=== PATIENT | female | born 1975 | race American Indian/Alaskan Native ===

== ENCOUNTER 2016-10-06 16:48 | Inpatient (IN) | payer OTHER ==
--- NOTE | 2016-10-06 17:04 | ED PDOC ---
Arrival/HPI - General Chief Complaint: Abdominal Pain Time Seen by Provider: 10/06/16 17:04 Historian: Patient - History of Present Illness Narrative History of Present Illness (Text): 10/06/16 17:04 This 41 yo female presents to this ED c/o epigastric abdominal pain and nausea x 8 hours. Patient stated pain worsen after eating lunch. Patient denies similar symptoms in the past. Denies cp, sob, diarrhea, rectal bleeding, ETOH abuse, illegal drug use, or abnormal gait. Time/Duration: Other (8 hours) Context: Home Past Medical History - Provider Review Nursing Documentation Reviewed: Yes - Infectious Disease Hx of Infectious Diseases: None - Cardiac Hx Hypertension: Yes - Psychiatric Hx Substance Use: No Family/Social History - Physician Review Nursing Documentation Reviewed: Yes Family/Social History: No Known Family HX Smoking Status: Never Smoked Hx Alcohol Use: No Hx Substance Use: No Allergies/Home Meds Allergies/Adverse Reactions: Allergies No Known Allergies Allergy (Verified 10/06/16 17:00) Home Medications: Home Meds Medication Instructions Recorded Confirmed No Known Home Med 10/06/16 10/06/16 Review of Systems - Review of Systems Constitutional: Normal. absent: Fatigue, Weight Change, Fevers Eyes: Normal ENT: Normal Respiratory: Normal Cardiovascular: Normal Gastrointestinal: Abdominal Pain (epigastric), Other (No rectal bleeding). absent: Constipation, Diarrhea, Nausea, Vomiting, Hematochezia, Hematemesis Genitourinary Female: Normal Musculoskeletal: Normal Skin: Normal Neurological: Normal Endocrine: Normal Hemo/Lymphatic: Normal Psychiatric: Normal Physical Exam Vital Signs Temp Pulse Resp BP Pulse Ox 10/06/16 21:29 85 16 99 10/06/16 20:44 98.8 F 59 L 15 144/95 H 100 10/06/16 18:00 72 16 180/90 H 99 10/06/16 17:08 98.6 F 86 24 178/101 H 100 Temperature: Afebrile Blood Pressure: Hypertensive Pulse: Regular Respiratory Rate: Normal Appearance: Positive for: Well-Appearing, Non-Toxic, Uncomfortable Pain Distress: None Mental Status: Positive for: Alert and Oriented X 3 - Systems Exam Head: Present: Atraumatic, Normocephalic Pupils: Present: PERRL Extroacular Muscles: Present: EOMI Conjunctiva: Present: Normal Mouth: Present: Moist Mucous Membranes Neck: Present: Normal Range of Motion Respiratory/Chest: Present: Clear to Auscultation, Good Air Exchange. No: Respiratory Distress, Accessory Muscle Use Cardiovascular: Present: Regular Rate and Rhythm, Normal S1, S2. No: Murmurs Abdomen: Present: Tenderness (Mild epigastric tenderness), Normal Bowel Sounds. No: Distention, Peritoneal Signs, Rebound, Guarding, McBurney's Point Tender, Rovsing's Sign Present, Hernias Back: Present: Normal Inspection. No: CVA Tenderness Upper Extremity: Present: Normal Inspection, Normal ROM, NORMAL PULSES, Neurovascularly Intact, Capillary Refill < 2s. No: Cyanosis, Edema Lower Extremity: Present: Normal Inspection, NORMAL PULSES, Normal ROM, Neurovascularly Intact, Capillary Refill < 2 s. No: Edema, CALF TENDERNESS Neurological: Present: GCS=15, CN II-XII Intact, Speech Normal, Motor Func Grossly Intact, Normal Sensory Function, Normal Cerebellar Funct, Gait Normal Skin: Present: Warm, Dry, Normal Color. No: Rashes Psychiatric: Present: Alert, Oriented x 3, Normal Insight, Normal Concentration Medical Decision Making ED Course and Treatment: 10/06/16 20:00 operations vice president has examined patient. He will contact Dr. Oneill immediately 10/06/16 21:36 Dr. Oneill is at bedside, who agrees with plan for admission under her service Re-evaluation Time: 20:10 Reassessment Condition: Re-examined, Improving,but remains with symptoms - Lab Interpretations Lab Results: 10/06/16 17:20 10/06/16 18:50 Lab Results 10/06/16 19:30: Lactate Dehydrogenase 484 10/06/16 18:50: Sodium 135, Potassium 3.4 L, Chloride 103, Carbon Dioxide 19 L, Anion Gap 16, BUN 6 L, Creatinine 0.9, Est GFR ( Amer) > 60, Est GFR (Non -Af Amer) > 60, Random Glucose 102, Calcium 9.5, Total Bilirubin 0.8, AST 27, ALT 20, Alkaline Phosphatase 87, Total Protein 8.4 H, Albumin 4.7, Globulin 3.7 , Albumin/Globulin Ratio 1.3, Amylase 120, Lipase 79 10/06/16 17:25: Urine Color Yellow, Urine Appearance Sl cloudy, Urine pH 8.5, Ur Specific [place] 1.025, Urine Protein Trace H, Urine Glucose (UA) Negative, Urine Ketones 40 H, Urine Blood Negative, Urine Nitrate Negative, Urine Bilirubin Negative, Urine Urobilinogen 0.2, Ur Leukocyte Esterase Negative, Urine RBC 0 - 2, Urine WBC 0 - 2, Ur Epithelial Cells 4 - 5, Urine Bacteria Trace, Urine HCG, Qual Negative 10/06/16 17:20: WBC 4.1 L, RBC 4.48, Hgb 12.9, Hct 38.2, MCV 85.3, MCH 28.8, MCHC 33.8, RDW 13.5, Plt Count 249, MPV 10.0, Gran % 71.4 H, Lymph % (Auto) 21.3 L, [place] % (Auto) 6.8 H, Eos % (Auto) 0.0 L, Baso % (Auto) 0.5, Gran # 2.96 , Lymph # 0.9 L, [place] # 0.3, Eos # 0.0, Baso # 0.02 I have reviewed the lab results: Yes Interpretation: No clinic. lab abnormalty - RAD Interpretation Narrative RAD Interpretations (Text): 10/06/16 20:08 [facility] FINDINGS: There is a short loop of abnormally dilated distal ileum in the right lower quadrant with proximal and distal adjacent transition points seen best on axial images 112-118. The appearance could reflect an adhesion, internal hernia, or volvulus. The obstructed loop is markedly edematous raising concern for early ischemia. No pneumatosis or free air. Small amount diffuse peritoneal ascites. Normal appendix and colon. The lung bases, unenhanced liver, biliary tree, gallbladder, pancreas, spleen, adrenal glands, kidneys, uterus, ovaries, and urinary bladder are normal. Chronic degenerative changes at the lumbosacral junction. IMPRESSION: Small closed loop distal ileal obstruction in the right lower quadrant. Findings could reflect an adhesion, internal hernia, or volvulus. The obstructed loop is abnormally edematous, concerning for early ischemia. No pneumatosis or free intraperitoneal air. Emergent surgical evaluation recommended. Thank you for allowing us to participate in the care of your patient. Dictated and Authenticated by: Aidee Rodas MD 10/06/2016 7:22 PM Eastern Time ([place] & [place]) 10/06/16 20:52 Accession No. : [id number] Patient Name / ID : VU CLAIRE / [id number] Exam Date : 10/06/2016 18:13:53 ( Approved ) Study Comment : Sex / Age : F / 41Y Creator : Ian Estrella MD Dictator : Ian Estrella MD Gaming Host : Counter Top Assembler : Ian Estrella MD Approver2 : Report Date : 10/06/2016 18:55:50 My Comment : HISTORY: epigastric pain COMPARISON: None. TECHNIQUE: Sonographic evaluation of the abdomen. FINDINGS: LIVER: Measures 14.4 cm. Hepatopedal blood flow. Fatty infiltration manifest ultrasonographically as increased echogenicity of the liver parenchyma. No mass. No intrahepatic bile duct dilatation. GALLBLADDER: Cholelithiasis. Negative study for gallbladder wall thickening, pericholecystic fluid, sonographic Breen's sign. COMMON BILE DUCT: Measures 3.7 mm. No stones. No dilatation. PANCREAS: Unremarkable as visualized. No mass. No ductal dilatation. RIGHT KIDNEY: Measures 4 x 9.1cm. Normal echogenicity. No calculus, mass, or hydronephrosis. LEFT KIDNEY: Measures 4.6 x 10.6cm. Normal echogenicity. No calculus, mass, or hydronephrosis. SPLEEN: Normal in size and contour. No mass. AORTA: No aneurysmal dilatation. IVC: Unremarkable. OTHER FINDINGS: Trace right upper quadrant/subhepatic ascites and trace fluid in the right flank IMPRESSION: Cholelithiasis. Negative study for gallbladder wall thickening, pericholecystic fluid, sonographic Breen's sign. Additional benign and/or incidental findings described above. Radiology Orders: 10/06/16 17:12 CHEST PORTABLE [RAD] Stat ABDOMEN COMPLETE [US] Stat 10/06/16 17:17 ABD & PELVIS W/O PO OR IV CONT [CT] Stat - Medication Orders Current Medication Orders: Famotidine (Pepcid) 20 mg IVP DAILY FABIAN Heparin Sodium (Porcine) (Heparin) 5,000 units SC Q12 FABIAN PRN Reason: Protocol Hydromorphone HCl (Dilaudid) 1 mg IVP Q3 PRN PRN Reason: Pain, severe (8-10) Hydromorphone HCl (Dilaudid) 0.5 mg IVP Q15M PRN PRN Reason: Pain, moderate (4-7) Stop: 10/07/16 17:51 Last Admin: 10/07/16 16:31 Dose: 0.5 mg Sodium Chloride (Sodium Chloride 0.9%) 1,000 mls @ 150 mls/hr IV .Q6H40M [facility] Last Admin: 10/07/16 05:50 Dose: 150 mls/hr Piperacillin Sod/Tazobactam Sod (Zosyn 3.375 In Ns 100ml) 100 mls @ 200 mls/hr IVPB Q6H [facility] PRN Reason: Protocol Stop: 10/08/16 03:59 Lactated Ringer's (Lactated Ringer's) 1,000 mls @ 75 mls/hr IV .[id number] [facility] Stop: 10/07/16 17:52 Ondansetron HCl (Zofran Inj) 4 mg IVP Q4H PRN PRN Reason: Nausea/Vomiting Last Admin: 10/07/16 05:56 Dose: 4 mg Oxycodone/Acetaminophen (Percocet 5/325 Mg Tab) 1 tab PO Q4H PRN PRN Reason: Pain, moderate (4-7) Stop: 10/10/16 15:54 Discontinued Medications Acetaminophen (Tylenol 650 Mg Supp) Confirm Administered Dose 650 mg .ROUTE .STK -MED ONE Stop: 10/07/16 13:39 Acetaminophen (Tylenol 650 Mg Supp) 650 mg RC STAT ONE Stop: 10/07/16 13:39 Desflurane (Suprane) Confirm Administered Dose 240 ml .ROUTE .STK-MED ONE Stop: 10/07/16 14:22 Dexamethasone (Decadron Inj) Confirm Administered Dose 10 mg .ROUTE .STK-MED ONE Stop: 10/07/16 15:32 Famotidine (Pepcid) 20 mg IVP STAT STA Stop: 10/06/16 17:13 Last Admin: 10/06/16 17:40 Dose: 20 mg Fentanyl (Fentanyl) Confirm Administered Dose 100 mcg .ROUTE .STK-MED ONE Stop: 10/07/16 14:11 Glycopyrrolate (Robinul) Confirm Administered Dose 0.2 mg .ROUTE .STK-MED ONE Stop: 10/07/16 15:29 Glycopyrrolate (Robinul) Confirm Administered Dose 0.2 mg .ROUTE .STK-MED ONE Stop: 10/07/16 15:30 Home Med (*Refrigerator Open) Confirm Administered Dose 1 unit XX .STK-MED ONE Stop: 10/07/16 08:18 Hydromorphone HCl (Dilaudid) 1 mg IVP STAT STA Stop: 10/06/16 19:37 Last Admin: 10/06/16 20:08 Dose: 1 mg Hydromorphone HCl (Dilaudid) 1 mg IVP STAT STA Stop: 10/06/16 21:25 Last Admin: 10/06/16 21:28 Dose: 1 mg Hydromorphone HCl (Dilaudid) Confirm Administered Dose 1 mg .ROUTE .STK-MED ONE Stop: 10/06/16 21:26 Last Admin: 10/06/16 21:27 Dose: Hydromorphone HCl (Dilaudid) 1 mg IVP Q4H PRN PRN Reason: Pain, severe (8-10) Last Admin: 10/07/16 11:05 Dose: 1 mg Hydromorphone HCl (Dilaudid) Confirm Administered Dose 0.5 mg .ROUTE .STK-MED ONE Stop: 10/07/16 16:14 Hydromorphone HCl (Dilaudid) Confirm Administered Dose 0.5 mg .ROUTE .STK-MED ONE Stop: 10/07/16 16:31 Sodium Chloride (Sodium Chloride 0.9%) 1,000 mls @ 1,000 mls/hr IV .Q1H STA Stop: 10/06/16 18:11 Last Admin: 10/06/16 17:40 Dose: 1,000 mls/hr Sodium Chloride (Sodium Chloride 0.9%) 1,000 mls @ 100 mls/hr IV .Q10H [facility] Piperacillin Sod/Tazobactam Sod (Zosyn 3.375 In Ns 100ml) 100 mls @ 200 mls/hr IVPB STAT STA PRN Reason: Protocol Stop: 10/07/16 15:02 Metoclopramide HCl (Reglan) Confirm Administered Dose 10 mg .ROUTE .STK-MED ONE Stop: 10/07/16 15:32 Midazolam HCl (Versed Inj) Confirm Administered Dose 2 mg .ROUTE .STK-MED ONE Stop: 10/07/16 14:11 Morphine Sulfate (Morphine) 2 mg IVP STAT STA Stop: 10/06/16 17:19 Last Admin: 10/06/16 17:41 Dose: 2 mg Re-Assess: DON Pain Assessment Document 10/06/16 18:41 BIBIANA (Rec: 10/06/16 19:47 BIBIANA [id number]) Pain Reassessment Is this a pain reassessment? Yes Sleep Is patient sleeping during reassessment? No Presence of Pain Presence of Pain Yes Description Description Intermittent Intensity of Pain at present 4 Morphine Sulfate (Morphine) Confirm Administered Dose 4 mg .ROUTE .STK-MED ONE Stop: 10/07/16 15:32 Neostigmine Methylsulfate (Neostigmine Methylsulfate) Confirm Administered Dose 3 mg IV .STK-MED ONE Stop: 10/07/16 15:32 Ondansetron HCl (Zofran Inj) 4 mg IVP STAT STA Stop: 10/06/16 17:13 Last Admin: 10/06/16 17:41 Dose: 4 mg Ondansetron HCl (Zofran Inj) Confirm Administered Dose 4 mg .ROUTE .STK-MED ONE Stop: 10/07/16 15:32 Propofol (Diprivan) Confirm Administered Dose 200 mg .ROUTE .STK-MED ONE Stop: 10/07/16 14:10 Rocuronium [place] (Zemuron) Confirm Administered Dose 50 mg .ROUTE .STK-MED ONE Stop: 10/07/16 14:21 Succinylcholine Chloride (Quelicin) Confirm Administered Dose 200 mg IV .STK- MED ONE Stop: 10/07/16 14:21 Disposition/Present on Arrival - Present on Arrival Any Indicators Present on Arrival: No History of DVT/PE: No History of Uncontrolled Diabetes: No Urinary Catheter: No History of Decub. Ulcer: No History Surgical Site Infection Following: None - Disposition Have Diagnosis and Disposition been Completed?: Yes Diagnosis: Abdominal pain, Small bowel obstruction, Volvulus Disposition: HOSPITALIZED Disposition Time: 20:49 Patient Plan: Admission Patient Problems: Current Active Problems Problem Status Onset Abdominal pain Acute Small bowel obstruction Acute Volvulus Acute Condition: STABLE
[2016-10-06] MEDS ORDERED: Sodium Chloride 0.9% 1,000 ML IV STA (17:12)
[2016-10-06] MEDS ORDERED: Morphine 2 mg/ml ISec IVP STA (17:18)
[2016-10-06 17:34] LABS: PH,URINE 8.5 (4.7-8.0); URINE BILIRUBIN NEGATIVE (NEGATIVE); URINE BLOOD NEGATIVE (NEGATIVE); URINE GLUCOSE (UA) NEGATIVE (NEGATIVE); URINE LEUKOCYTE ESTERASE NEGATIVE Leu/uL (NEGATIVE); URINE NITRATE NEGATIVE (NEGATIVE); URINE PROTEIN TRACE mg/dL (<30 mg/dL); URINE UROBILINOGEN 0.2 E.U./dL (<1 E.U./dL)
[2016-10-06 17:35] LABS: URINE APPEARANCE SL CLOUDY (CLEAR); URINE COLOR YELLOW (YELLOW)
[2016-10-06 17:37] LABS: HCG,QUALITATIVE URINE NEGATIVE (NEGATIVE)
--- NOTE | 2016-10-06 17:37 | RAD ---
HISTORY: epigastric pain COMPARISON: None available. TECHNIQUE: Chest, one view. FINDINGS: LUNGS: No focal consolidation. Please note that chest x-ray has limited sensitivity for the detection of pulmonary masses. PLEURA: No significant pleural effusion identified. No definite pneumothorax . CARDIOVASCULAR: The cardiomediastinal silhouette appears within normal limits of size. OSSEOUS STRUCTURES: No acute osseous abnormality identified. VISUALIZED UPPER ABDOMEN: Unremarkable. OTHER FINDINGS: None. IMPRESSION: No focal consolidation, significant pleural effusion, or definite pneumothorax identified.
[2016-10-06 17:41] LABS: URINE BACTERIA TRACE (NEG); URINE RBC 0 - 2 /hpf (0-2); URINE WBC 0 - 2 /hpf (0-6)
[2016-10-06 17:56] LABS: BASO # 0.02 K/mm3 (0.0-2.0); BASO % 0.5 % (0.0-3.0); GRAN # 2.96 (1.4-6.5); GRAN % 71.4 % (50.0-68.0); HEMOGLOBIN 12.9 gm/dL (12.0-16.0); LYMPH # 0.9 (1.2-3.4); LYMPH % 21.3 % (22.0-35.0); MEAN CELL VOLUME 85.3 fL (80.0-105.0); MEAN CORPUSCULAR HEMOGLOBIN 28.8 pg (25.0-35.0); MEAN CORPUSCULAR HGB CONC 33.8 g/dl (31.0-37.0); MONO # 0.3 (0.1-0.6); MONO % 6.8 % (1.0-6.0); PLATELET COUNT 249 10^3/uL (120.0-450.0); RBC 4.48 10^6/uL (3.5-6.1); RED CELL DISTRIBUTION WIDTH 13.5 % (11.5-14.5); WHITE BLOOD COUNT 4.1 10^3/ul (4.5-11.0)
--- NOTE | 2016-10-06 18:57 | US ---
HISTORY: epigastric pain COMPARISON: None. TECHNIQUE: Sonographic evaluation of the abdomen. FINDINGS: LIVER: Measures 14.4 cm. Hepatopedal blood flow. Fatty infiltration manifest ultrasonographically as increased echogenicity of the liver parenchyma. No mass. No intrahepatic bile duct dilatation. GALLBLADDER: Cholelithiasis. Negative study for gallbladder wall thickening, pericholecystic fluid, sonographic Breen's sign. COMMON BILE DUCT: Measures 3.7 mm. No stones. No dilatation. PANCREAS: Unremarkable as visualized. No mass. No ductal dilatation. RIGHT KIDNEY: Measures 4 x 9.1cm. Normal echogenicity. No calculus, mass, or hydronephrosis. LEFT KIDNEY: Measures 4.6 x 10.6cm. Normal echogenicity. No calculus, mass, or hydronephrosis. SPLEEN: Normal in size and contour. No mass. AORTA: No aneurysmal dilatation. IVC: Unremarkable. OTHER FINDINGS: Trace right upper quadrant/subhepatic ascites and trace fluid in the right flank IMPRESSION: Cholelithiasis. Negative study for gallbladder wall thickening, pericholecystic fluid, sonographic Breen's sign. Additional benign and/or incidental findings described above.
[2016-10-06 19:29] LABS: ALB/GLOB RATIO 1.3 (1.1-1.8); ALBUMIN 4.7 g/dL (3.0-4.8); ALT/SGPT 20 U/L (7-56); AMYLASE 120 U/L (35-125); AST/SGOT 27 U/L (15-39); BLOOD UREA NITROGEN 6 mg/dL (7-21); CALCIUM 9.5 mg/dL (8.4-10.5); GFR AFRICAN-AMERICAN > 60; GFR NON-AFRICAN AMERICAN > 60; LIPASE 79 U/L (23-300)
[2016-10-06] MEDS ORDERED: HYDROmorphone 1 mg/ml ISec IVP STA ×2 (19:36→21:24)
--- NOTE | 2016-10-06 21:00 | CP.PCM.HP ---
History of Present Illness - History of Present Illness History of Present Illness: General Surgery 41F female came into the ED with sudden epigastric pain that started around lunch and has been getting progressively worse. Nothing has been able to relieve the pain. Pt had a similar episode in 2012 and spontaneously resolved after taking GasX. Pain is currently 8/10 localizing to the right lower quadrant. Pt is nauseous and vomited x4 most recent described as bilious. No BM since yesterday morning, stool was well formed non-bloody. Denies Fever, chills, SOB, CP, BLANCO, changes in urinary habits. PMHx: Gestational diabetes. Does not currently have a PCP PSHx: cyst excision on head ALL: NKDA SocialHx: no history of tobacco or ETOH use. 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 absent: Chills, Fever - Cardiovascular Cardiovascular: As Per HPI. absent: Chest Pain, Irregular Heart Rhythm - Respiratory Respiratory: As Per HPI. absent: Wheezing, Pain on Inspiration - Gastrointestinal Gastrointestinal: As Per HPI, Nausea, Vomiting - Genitourinary Genitourinary: As Per HPI Past Patient History - Infectious Disease Hx of Infectious Diseases: None - Past Social History Smoking Status: Never Smoked - CARDIAC Hx Hypertension: Yes - PSYCHIATRIC Hx Substance Use: No - SURGICAL HISTORY Hx Surgeries: No Meds Allergies/Adverse Reactions: Allergies Allergy/AdvReac Type Severity Reaction Status Date / Time No Known Allergies Allergy Verified 10/06/16 17:00 Physical Exam - Constitutional Additional comments: Mild Distress writhing in pain holding abdomen - Respiratory Exam Respiratory Exam: Clear to Auscultation Bilateral, NORMAL BREATHING PATTERN. absent: Accessory Muscle Use - Cardiovascular Exam Cardiovascular Exam: REGULAR RHYTHM, +S1, +S2. absent: Gallop, Rubs - GI/Abdominal Exam GI & Abdominal Exam: Diminished Bowel Sounds, Distended, Soft, Tenderness. absent: Hernia Additional comments: TTP in right lower quadrant. does not radiate. Negative rovsings, negative Haslet - Extremities Exam Extremities exam: Positive for: normal inspection. Negative for: calf tenderness, joint swelling, pedal edema - Neurological Exam Neurological exam: Alert, Oriented x3 - Psychiatric Exam Psychiatric exam: Normal Affect Results - Vital Signs Recent Vital Signs: Last Vital Signs Temp 98.8 F 10/06/16 20:44 Pulse 59 L 10/06/16 20:44 Resp 15 10/06/16 20:44 BP 144/95 H 10/06/16 20:44 Pulse Ox 100 10/06/16 20:44 - Labs Result Diagrams: 10/06/16 17:20 10/06/16 18:50 Labs: Laboratory Results - last 24 hr 10/06/16 10/06/16 10/06/16 17:20 17:25 18:50 WBC 4.1 L RBC 4.48 Hgb 12.9 Hct 38.2 MCV 85.3 MCH 28.8 MCHC 33.8 RDW 13.5 Plt Count 249 MPV 10.0 Gran % 71.4 H Lymph % (Auto) 21.3 L [place] % (Auto) 6.8 H Eos % (Auto) 0.0 L Baso % (Auto) 0.5 Gran # 2.96 Lymph # 0.9 L [place]y # 0.3 Eos # 0.0 Baso # 0.02 Sodium 135 Potassium 3.4 L Chloride 103 Carbon Dioxide 19 L Anion Gap 16 BUN 6 L Creatinine 0.9 Est GFR ( Amer) > 60 Est GFR (Non-Af Amer) > 60 Random Glucose 102 Calcium 9.5 Total Bilirubin 0.8 AST 27 ALT 20 Alkaline Phosphatase 87 Total Protein 8.4 H Albumin 4.7 Globulin 3.7 Albumin/Globulin Ratio 1.3 Amylase 120 Lipase 79 Urine Color Yellow Urine Appearance Sl cloudy Urine pH 8.5 Ur Specific [place] 1.025 Urine Protein Trace H Urine Glucose (UA) Negative Urine Ketones 40 H Urine Blood Negative Urine Nitrate Negative Urine Bilirubin Negative Urine Urobilinogen 0.2 Ur Leukocyte Esterase Negative Urine RBC 0 - 2 Urine WBC 0 - 2 Ur Epithelial Cells 4 - 5 Urine Bacteria Trace Urine HCG, Qual Negative Assessment & Plan - Assessment and Plan (Free Text) Assessment: 41F with acute onset of abdominal pain localized to left lower quadrant Plan: - Admit to service - IVF NS - Pain Control - GI PPX - Monitor I/O - scheduled for surgery tomorrow Discussed with Dr. Nino Hardy PGY1 - Date & Time Date: 10/06/16 Time: 21:30
[2016-10-06 21:10] LABS: VENOUS BLOOD GAS PO2 42 mm/Hg (30-55); VENOUS BLOOD PH 7.36 (7.32-7.43)
[2016-10-06] MEDS ORDERED: HYDROmorphone 1 mg/ml ISec ONE (21:25)
[2016-10-06] MEDS ORDERED: Sodium Chloride 0.9% 1,000 ML IV SCH (21:30)
[2016-10-06] MEDS: Sodium Chloride 0.9% 1,000 ML IV SCH (22:51)
[2016-10-07] MEDS: HYDROmorphone 1 mg/ml ISec IVP PRN ×3 (01:42→11:05)
[2016-10-07] MEDS: Sodium Chloride 0.9% 1,000 ML IV SCH ×3 (05:50→17:41)
--- NOTE | 2016-10-07 07:41 | CT ---
PROCEDURE: CT Abdomen and Pelvis without intravenous contrast HISTORY: epigastric pain COMPARISON: None. TECHNIQUE: Without contrast.. Contrast Dose: 0 Radiation dose: Total exam DLP = 659.53 mGy-cm. This CT exam was performed using one or more of the following dose reduction techniques: Automated exposure control, adjustment of the mA and/or kV according to patient size, and/or use of iterative reconstruction technique. FINDINGS: LOWER THORAX: Unremarkable. LIVER: Unremarkable. No gross lesion or ductal dilatation. GALLBLADDER AND BILE DUCTS: Unremarkable. PANCREAS: Unremarkable. No gross lesion or ductal dilatation. SPLEEN: Unremarkable. ADRENALS: Unremarkable. No mass. KIDNEYS AND URETERS: Unremarkable. No hydronephrosis. No solid mass. VASCULATURE: Unremarkable. No aortic aneurysm. BOWEL: There is dilatation of distal ileum although the result short segment of normal caliber terminal ileum. There is fecalization of the distal ileal content. There is no generalized small bowel obstruction. The findings may reflect early mechanical small bowel obstruction. Followup is advised. There is mucosal edema of a solitary loop of dilated distal ileum. Significance uncertain. Small hiatal hernia. No other abnormal bowel loops. Mild retained feces. APPENDIX: Unremarkable. Normal appendix. PERITONEUM: Mild ascites. No pneumoperitoneum. LYMPH NODES: Unremarkable. No enlarged lymph nodes. BLADDER: Unremarkable. REPRODUCTIVE: Unremarkable uterus. BONES: No acute fracture. OTHER FINDINGS: None. IMPRESSION: Dilated loops of distal ileum with fecalization of small bowel content. Mucosal edema of a solitary loop of distal ileum. Significance uncertain. Rule out early mechanical bowel obstruction. Followup advised. Mild ascites, nonspecific. Small hiatal hernia. No other significant abnormality. Preliminary interpretation of this examination was reported by [facility] at 7:22 p.m. on 10/06/2016. There is general concurrence of this report with the preliminary interpretation.
[2016-10-07 08:08] LABS: BASO # 0.01 K/mm3 (0.0-2.0); BASO % 0.1 % (0.0-3.0); GRAN # 7.95 (1.4-6.5); GRAN % 88.3 % (50.0-68.0); HEMOGLOBIN 12.8 gm/dL (12.0-16.0); LYMPH # 0.4 (1.2-3.4); LYMPH % 4.8 % (22.0-35.0); MEAN CELL VOLUME 85.4 fL (80.0-105.0); MEAN CORPUSCULAR HEMOGLOBIN 28.4 pg (25.0-35.0); MEAN CORPUSCULAR HGB CONC 33.2 g/dl (31.0-37.0); MEAN PLATELET VOLUME 9.7 fl (7.0-11.0); MONO # 0.6 (0.1-0.6); MONO % 6.8 % (1.0-6.0); PLATELET COUNT 220 10^3/uL (120.0-450.0); RBC 4.51 10^6/uL (3.5-6.1); RED CELL DISTRIBUTION WIDTH 13.5 % (11.5-14.5)
[2016-10-07 08:16] LABS: ALB/GLOB RATIO 1.3 (1.1-1.8); ALBUMIN 4.2 g/dL (3.0-4.8); ALT/SGPT 23 U/L (7-56); AST/SGOT 23 U/L (15-39); BLOOD UREA NITROGEN 5 mg/dL (7-21); CALCIUM 8.6 mg/dL (8.4-10.5); GFR AFRICAN-AMERICAN > 60; GFR NON-AFRICAN AMERICAN > 60
[2016-10-07 11:38] LABS: INR 1.06 (0.93-1.08); PARTIAL THROMBOPLASTIN TIME 28.9 Seconds (23.7-30.8); PROTHROMBIN TIME 11.4 Seconds (9.9-11.8)
[2016-10-07 12:31] LABS: PROLACTIN 40.1 ng/mL (3.0-18.9)
[2016-10-07] MEDS ORDERED: Propofol 10 mg/ml Inj (20 ML) ONE (14:09)
[2016-10-07] MEDS ORDERED: Midazolam 2 MG/2 ML VIAL ONE (14:10)
[2016-10-07] MEDS ORDERED: Rocuronium 10 mg/ml (5 ml) ONE (14:20)
[2016-10-07] MEDS ORDERED: Succinylcholine 200 mg/10 ml Inj IV ONE (14:20)
[2016-10-07] MEDS ORDERED: Desflurane Inhalation Anesthetic Liq (240 ml) ONE (14:21)
[2016-10-07] MEDS ORDERED: Piperacillin/Tazobact 3.375 gm 100 ML IVPB STA (14:33)
[2016-10-07] MEDS ORDERED: Glycopyrrolate 0.2 mg/ml (2ml vial) ONE (15:29)
[2016-10-07] MEDS ORDERED: Neostigmine Methylsulfate 3mg/3ml Syringe IV ONE (15:31)
[2016-10-07] MEDS ORDERED: Morphine 4 mg/ml ISec ONE (15:31)
--- NOTE | 2016-10-07 15:43 | PCM.SURG1 ---
Surgeon's Initial Post Op Note - Surgeon's Notes Surgeon: Nino Lens Examiner: Jl PGY2, PGY1 Pre-Operative Diagnosis: Closed loop small bowel obstruction Operative Findings: strangulated distal small bowel within internal hernia Post-Operative Diagnosis: Internal hernia containing strangulated distal small bowel Operation Performed: Diagnostic laparoscopy, ileocecectomy with anastomosis Specimen/Specimens Removed: distal ileum, cecum, appendix Estimated Blood Loss: EBL {In ML}: 250 Date of Surgery/Procedure: 10/07/16 Time of Surgery/Procedure: 14:45
[2016-10-07] MEDS ORDERED: HYDROmorphone 1 mg/ml ISec IVP PRN (15:45)
[2016-10-07] MEDS ORDERED: Lactated Ringer's 1,000 ML IV SCH (15:51)
[2016-10-07] MEDS: HYDROmorphone 0.5 mg/0.5 ml ISec IVP PRN ×2 (16:11→16:31)
[2016-10-07] MEDS ORDERED: HYDROmorphone 0.5 mg/0.5 ml ISec ONE ×2 (16:13→16:30)
[2016-10-07] MEDS: Piperacillin/Tazobact 3.375 gm 100 ML IVPB SCH (21:14)
[2016-10-07] MEDS: Oxycodone/Acetaminophen 5/325 mg Tab PO PRN (21:26)
[2016-10-08] MEDS: Piperacillin/Tazobact 3.375 gm 100 ML IVPB SCH ×4 (03:25→15:06)
[2016-10-08] MEDS: Sodium Chloride 0.9% 1,000 ML IV SCH ×3 (03:58→19:03)
[2016-10-08] MEDS: Oxycodone/Acetaminophen 5/325 mg Tab PO PRN ×4 (05:36→21:21)
[2016-10-08 07:10] LABS: ALB/GLOB RATIO 1.1 (1.1-1.8); ALBUMIN 3.3 g/dL (3.0-4.8); ALT/SGPT 18 U/L (7-56); AST/SGOT 42 U/L (15-39); BLOOD UREA NITROGEN 9 mg/dL (7-21); CALCIUM 8.6 mg/dL (8.4-10.5); GFR AFRICAN-AMERICAN > 60; GFR NON-AFRICAN AMERICAN > 60
[2016-10-08 07:16] LABS: HEMOGLOBIN 11.5 gm/dL (12.0-16.0); MEAN CELL VOLUME 85.4 fL (80.0-105.0); MEAN CORPUSCULAR HGB CONC 32.8 g/dl (31.0-37.0); MEAN PLATELET VOLUME 10.1 fl (7.0-11.0); RBC 4.11 10^6/uL (3.5-6.1); RED CELL DISTRIBUTION WIDTH 13.9 % (11.5-14.5); WHITE BLOOD COUNT 12.8 10^3/ul (4.5-11.0)
--- NOTE | 2016-10-08 08:35 | CP.PCM.PN ---
Subjective - Date & Time of Evaluation Date of Evaluation: 10/08/16 Time of Evaluation: 06:45 - Subjective Subjective: General Surgery note- Dr. Oneill Pt S&E at beside this AM. Pt was febrile overnight and given Acetaminophen and temperature is resolving. abdominal pain significantly decreased. appropriately tender around incision. Denies N/V/CP/SOB. No flatus and BM. Dressing C/D/I with little strike through. Objective - Vital Signs/Intake and Output Vital Signs (last 24 hours): Temp Pulse Resp BP Pulse Ox 100.1 F H 89 20 134/100 H 97 10/08/16 07:58 10/08/16 07:58 10/08/16 07:58 10/08/16 07:58 10/08/16 07:58 Intake and Output: 10/08/16 10/08/16 06:59 18:59 Intake Total 1620 Balance 1620 - Medications Medications: Current Medications Acetaminophen (Tylenol 325mg Tab) 650 mg PO Q4H PRN PRN Reason: Fever >100.4 F Famotidine (Pepcid) 20 mg IVP DAILY [facility] Last Admin: 10/07/16 17:37 Dose: 20 mg Heparin Sodium (Porcine) (Heparin) 5,000 units SC Q12 [facility] PRN Reason: Protocol Last Admin: 10/07/16 21:15 Dose: 5,000 units Hydromorphone HCl (Dilaudid) 1 mg IVP Q3 PRN PRN Reason: Pain, severe (8-10) Sodium Chloride (Sodium Chloride 0.9%) 1,000 mls @ 150 mls/hr IV .Q6H40M [facility] Last Admin: 10/08/16 03:58 Dose: 150 mls/hr Piperacillin Sod/Tazobactam Sod (Zosyn 3.375 In Ns 100ml) 100 mls @ 200 mls/hr IVPB Q6H [facility] PRN Reason: Protocol Stop: 10/08/16 15:59 Last Admin: 10/08/16 05:46 Dose: 200 mls/hr Ondansetron HCl (Zofran Inj) 4 mg IVP Q4H PRN PRN Reason: Nausea/Vomiting Last Admin: 10/07/16 05:56 Dose: 4 mg Oxycodone/Acetaminophen (Percocet 5/325 Mg Tab) 1 tab PO Q4H PRN PRN Reason: Pain, moderate (4-7) Stop: 10/10/16 15:54 Last Admin: 10/08/16 05:36 Dose: 1 tab - Labs Labs: 10/08/16 06:10 10/08/16 06:10 PT 11.4 Seconds (9.9-11.8) 10/07/16 11:25 INR 1.06 (0.93-1.08) 10/07/16 11:25 APTT 33.1 Seconds (23.7-30.8) H 10/08/16 06:10 - Constitutional Appears: Well, No Acute Distress - Head Exam Head Exam: ATRAUMATIC - Eye Exam Eye Exam: Normal appearance - Respiratory Exam Respiratory Exam: Clear to Ausculation Bilateral, NORMAL BREATHING PATTERN. absent: Accessory Muscle Use - Cardiovascular Exam Cardiovascular Exam: REGULAR RHYTHM, +S1, +S2 - GI/Abdominal Exam GI & Abdominal Exam: Soft, Tenderness, Diminished Bowel Sounds. absent: Distended, Firm, Guarding, Rigid, Mass - Extremities Exam Extremities Exam: absent: Pedal Edema - Neurological Exam Neurological Exam: Awake, Oriented x3 - Psychiatric Exam Psychiatric exam: Normal Affect, Normal Mood - Skin Skin Exam: Intact, Normal Color, Warm Assessment and Plan - Assessment and Plan (Free Text) Assessment: 41F Internal hernia strangulated distal small bowel POD#1 s/p ileocecectomy with anastomosis Plan: - continue sips w/ clears - Incentive spectrometry - GI/DVT ppx - OOB - pain control - IVF discussed with Dr. Nino Hardy PGY1
--- NOTE | 2016-10-08 20:46 | CP.PCM.PN ---
Subjective - Date & Time of Evaluation Date of Evaluation: 10/08/16 Time of Evaluation: 18:00 - Subjective Subjective: Patient seen and examined bed side. Pt denies cp, palpitations, dizziness, n/v, or excessive pain. Denies BM or flatus. Pt states that she does have a history of high blood pressure but she doesn't take medication or see a PMD. PMHx: PMHx, Gestational diabetes. Does not currently have a PMD. PSHx: cyst excision on head ALL: NKDA SocialHx: no history of tobacco or ETOH use. 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 Objective - Vital Signs/Intake and Output Vital Signs (last 24 hours): Temp Pulse Resp BP Pulse Ox 100.0 F H 87 20 141/102 H 98 10/08/16 16:15 10/08/16 19:04 10/08/16 16:15 10/08/16 19:04 10/08/16 16:15 - Medications Medications: Current Medications Acetaminophen (Tylenol 325mg Tab) 650 mg PO Q4H PRN PRN Reason: Fever >100.4 F Last Admin: 10/08/16 16:21 Dose: 650 mg Amlodipine Besylate (Norvasc) 2.5 mg PO DAILY [facility] Last Admin: 10/08/16 19:04 Dose: 2.5 mg Chlorthalidone (Hygroton) 25 mg PO DAILY [facility] Last Admin: 10/08/16 19:04 Dose: 25 mg Famotidine (Pepcid) 20 mg IVP DAILY [facility] Last Admin: 10/08/16 10:30 Dose: 20 mg Heparin Sodium (Porcine) (Heparin) 5,000 units SC Q12 [facility] PRN Reason: Protocol Last Admin: 10/08/16 10:29 Dose: 5,000 units Hydralazine HCl (Apresoline) 25 mg PO Q6 PRN PRN Reason: Pain, moderate (4-7) Hydromorphone HCl (Dilaudid) 1 mg IVP Q3 PRN PRN Reason: Pain, severe (8-10) Sodium Chloride (Sodium Chloride 0.9%) 1,000 mls @ 120 mls/hr IV .Q8H20M [facility] Last Admin: 10/08/16 19:03 Dose: Not Given Lisinopril (Zestril) 10 mg PO DAILY [facility] Last Admin: 10/08/16 19:04 Dose: 10 mg Ondansetron HCl (Zofran Inj) 4 mg IVP Q4H PRN PRN Reason: Nausea/Vomiting Last Admin: 10/07/16 05:56 Dose: 4 mg Oxycodone/Acetaminophen (Percocet 5/325 Mg Tab) 1 tab PO Q4H PRN PRN Reason: Pain, moderate (4-7) Stop: 10/10/16 15:54 Last Admin: 10/08/16 16:21 Dose: 1 tab - Labs Labs: 10/08/16 06:10 10/08/16 06:10 PT 11.4 Seconds (9.9-11.8) 10/07/16 11:25 INR 1.06 (0.93-1.08) 10/07/16 11:25 APTT 33.1 Seconds (23.7-30.8) H 10/08/16 06:10 Assessment and Plan - Assessment and Plan (Free Text) Assessment: 41F female came into the ED with sudden worsening epigastric pain a/w n/v. No BM since yesterday morning. Patient went to OR for internal hernia strangulated distal small bowel s/p ileocecectomy with anastomosis. Medicine was consulted for post-op htn. 1. HTN - start on chlorthalidone 25mg PO daily, Lisinopril 10mg PO daily, Norvasc 2.5mg PO daily - hydralazine 25mg PO Q6 PRN - f/u with PMD outpt for BP management 2. hernia strangulated distal small bowel s/p ileocecectomy with anastomosis - per surgery Thanks for consult. Patient seen, discussed and evaluated with attending, Dr. Bridgett Fernandez, PGY1
[2016-10-09] MEDS: Sodium Chloride 0.9% 1,000 ML IV SCH ×3 (02:27→11:30)
--- NOTE | 2016-10-09 06:20 | CP.PCM.PN ---
Subjective - Date & Time of Evaluation Date of Evaluation: 10/09/16 Time of Evaluation: 06:15 - Subjective Subjective: General Surgery Progress note for Dr. Oneill 41F PT S&E at [facility]. Nurse notes spotting on dressing. Patient admits to eructation. Patient says she is OOB, using her IS. Denies flatus, BM, F/C, N/ V, C/D. Objective - Vital Signs/Intake and Output Vital Signs (last 24 hours): Temp Pulse Resp BP Pulse Ox 100.0 F H 87 20 141/102 H 98 10/08/16 16:15 10/08/16 19:04 10/08/16 16:15 10/08/16 19:04 10/08/16 16:15 - Medications Medications: Current Medications Acetaminophen (Tylenol 325mg Tab) 650 mg PO Q4H PRN PRN Reason: Fever >100.4 F Last Admin: 10/08/16 16:21 Dose: 650 mg Amlodipine Besylate (Norvasc) 2.5 mg PO DAILY [facility] Last Admin: 10/08/16 19:04 Dose: 2.5 mg Chlorthalidone (Hygroton) 25 mg PO DAILY [facility] Last Admin: 10/08/16 19:04 Dose: 25 mg Famotidine (Pepcid) 20 mg IVP DAILY [facility] Last Admin: 10/08/16 10:30 Dose: 20 mg Heparin Sodium (Porcine) (Heparin) 5,000 units SC Q12 [facility] PRN Reason: Protocol Last Admin: 10/08/16 21:21 Dose: 5,000 units Hydralazine HCl (Apresoline) 25 mg PO Q6 PRN PRN Reason: Pain, moderate (4-7) Hydromorphone HCl (Dilaudid) 1 mg IVP Q3 PRN PRN Reason: Pain, severe (8-10) Sodium Chloride (Sodium Chloride 0.9%) 1,000 mls @ 120 mls/hr IV .Q8H20M [facility] Last Admin: 10/09/16 03:22 Dose: 120 mls/hr Lisinopril (Zestril) 10 mg PO DAILY [facility] Last Admin: 10/08/16 19:04 Dose: 10 mg Ondansetron HCl (Zofran Inj) 4 mg IVP Q4H PRN PRN Reason: Nausea/Vomiting Last Admin: 10/07/16 05:56 Dose: 4 mg Oxycodone/Acetaminophen (Percocet 5/325 Mg Tab) 1 tab PO Q4H PRN PRN Reason: Pain, moderate (4-7) Stop: 10/10/16 15:54 Last Admin: 10/08/16 21:21 Dose: 1 tab - Labs Labs: 10/08/16 06:10 10/08/16 06:10 PT 11.4 Seconds (9.9-11.8) 10/07/16 11:25 INR 1.06 (0.93-1.08) 10/07/16 11:25 APTT 33.1 Seconds (23.7-30.8) H 10/08/16 06:10 - Constitutional Appears: Well - Head Exam Head Exam: NORMAL INSPECTION - Eye Exam Eye Exam: EOMI, Normal appearance - ENT Exam ENT Exam: Mucous Membranes Moist - Neck Exam Neck Exam: Full ROM, Normal Inspection - Respiratory Exam Respiratory Exam: NORMAL BREATHING PATTERN. absent: Accessory Muscle Use, Wheezes, Respiratory Distress - GI/Abdominal Exam GI & Abdominal Exam: Soft, Tenderness. absent: Firm, Guarding, Rigid - Extremities Exam Extremities Exam: Full ROM, Normal Inspection. absent: Pedal Edema - Psychiatric Exam Psychiatric exam: Normal Affect, Normal Mood - Skin Skin Exam: Dry, Intact, Normal Color, Warm Additional comments: incision site c/d/i, no signs of induration, erythema, edema, drainage. Assessment and Plan - Assessment and Plan (Free Text) Assessment: 41F admitted SBO s/p ileocecectomy with anastamosis pod #2. Plan: c/w current pain management c/w sips w/ clears HTN management by Medicine consult c/w IS, GI/DVT ppx OOB IVF Susan Centeno, DO PGY1
[2016-10-09] MEDS: Oxycodone/Acetaminophen 5/325 mg Tab PO PRN (09:13)
[2016-10-09 13:07] LABS: ALB/GLOB RATIO 1.1 (1.1-1.8); ALBUMIN 3.4 g/dL (3.0-4.8); ALT/SGPT 38 U/L (7-56); AST/SGOT 129 U/L (15-39); BLOOD UREA NITROGEN 6 mg/dL (7-21); CALCIUM 8.7 mg/dL (8.4-10.5); GFR AFRICAN-AMERICAN > 60; GFR NON-AFRICAN AMERICAN > 60
[2016-10-09 13:37] LABS: HEMOGLOBIN 10.3 gm/dL (12.0-16.0); MEAN CELL VOLUME 86.2 fL (80.0-105.0); MEAN CORPUSCULAR HEMOGLOBIN 27.8 pg (25.0-35.0); MEAN CORPUSCULAR HGB CONC 32.3 g/dl (31.0-37.0); MEAN PLATELET VOLUME 10.1 fl (7.0-11.0); RBC 3.7 10^6/uL (3.5-6.1); RED CELL DISTRIBUTION WIDTH 13.9 % (11.5-14.5); WHITE BLOOD COUNT 8.2 10^3/ul (4.5-11.0)
--- NOTE | 2016-10-09 14:54 | CP.PCM.PN ---
<HARJIT FERNANDEZ - Last Filed: 10/09/16 14:55> Subjective - Date & Time of Evaluation Date of Evaluation: 10/09/16 Time of Evaluation: 09:00 - Subjective Subjective: Patient was seen and examined today. She denies any complaints of chest pain, palpitations, dizziness, headache, n/v, BM, or flatus. Objective - Vital Signs/Intake and Output Vital Signs (last 24 hours): Temp Pulse Resp BP Pulse Ox 98.8 F 83 20 150/96 H 99 10/09/16 08:00 10/09/16 09:14 10/09/16 08:00 10/09/16 09:14 10/09/16 08:00 - Medications Medications: Current Medications Acetaminophen (Tylenol 325mg Tab) 650 mg PO Q4H PRN PRN Reason: Fever >100.4 F Last Admin: 10/08/16 16:21 Dose: 650 mg Amlodipine Besylate (Norvasc) 10 mg PO DAILY [facility] Chlorthalidone (Hygroton) 25 mg PO DAILY [facility] Last Admin: 10/09/16 09:13 Dose: 25 mg Famotidine (Pepcid) 20 mg IVP DAILY [facility] Last Admin: 10/09/16 09:13 Dose: 20 mg Heparin Sodium (Porcine) (Heparin) 5,000 units SC Q12 [facility] PRN Reason: Protocol Last Admin: 10/09/16 09:12 Dose: 5,000 units Hydralazine HCl (Apresoline) 25 mg PO Q6 PRN PRN Reason: Pain, moderate (4-7) Hydromorphone HCl (Dilaudid) 1 mg IVP Q3 PRN PRN Reason: Pain, severe (8-10) Sodium Chloride (Sodium Chloride 0.9%) 1,000 mls @ 120 mls/hr IV .Q8H20M [facility] Last Admin: 10/09/16 11:30 Dose: 120 mls/hr Ondansetron HCl (Zofran Inj) 4 mg IVP Q4H PRN PRN Reason: Nausea/Vomiting Last Admin: 10/07/16 05:56 Dose: 4 mg Oxycodone/Acetaminophen (Percocet 5/325 Mg Tab) 1 tab PO Q4H PRN PRN Reason: Pain, moderate (4-7) Stop: 10/10/16 15:54 Last Admin: 10/09/16 09:13 Dose: 1 tab - Labs Labs: 10/09/16 12:30 10/09/16 12:30 PT 11.4 Seconds (9.9-11.8) 10/07/16 11:25 INR 1.06 (0.93-1.08) 10/07/16 11:25 APTT 33.1 Seconds (23.7-30.8) H 10/08/16 06:10 - Constitutional Appears: Well, No Acute Distress - Head Exam Head Exam: ATRAUMATIC, NORMOCEPHALIC - Eye Exam Eye Exam: EOMI, Normal appearance, PERRL - ENT Exam ENT Exam: Mucous Membranes Moist, Normal Exam - Respiratory Exam Respiratory Exam: Clear to Ausculation Bilateral, NORMAL BREATHING PATTERN. absent: Rales, Rhonchi, Wheezes, Respiratory Distress, Stridor - Cardiovascular Exam Cardiovascular Exam: RRR, +S1, +S2. absent: Gallop, JVD, Rubs, Murmur - GI/Abdominal Exam GI & Abdominal Exam: Soft, Tenderness (appropriate to post-op), Hypoactive Bowel Sounds - Neurological Exam Neurological Exam: Alert, Awake, Oriented x3 - Psychiatric Exam Psychiatric exam: Normal Affect, Normal Mood - Skin Skin Exam: Normal Color. absent: Cyanosis Additional comments: incision site clean/dry/intact Assessment and Plan - Assessment and Plan (Free Text) Assessment: 1. Hypertension - Norvasc increased to 10mg PO daily - Lisonipril discontinued - Patient should f/u with PMD once d/c 2. hernia strangulated distal small bowel s/p ileocecectomy with anastomosis - per surgery team 3. pain control - per surgery team Thank you for consult. Medicine team signing off. Patient was seen, discussed and evaluated with attending, Dr. Talat Fernandez, PGY1 <Patricia Gilliland - Last Filed: 10/09/16 21:57> Objective - Vital Signs/Intake and Output Vital Signs (last 24 hours): Temp Pulse Resp BP Pulse Ox 99 F 90 20 130/98 H 98 10/09/16 17:54 10/09/16 16:46 10/09/16 16:00 10/09/16 17:54 10/09/16 16:00 Intake and Output: 10/09/16 10/10/16 18:59 06:59 Intake Total 2960 Balance 2960 - Medications Medications: Current Medications Acetaminophen (Tylenol 325mg Tab) 650 mg PO Q4H PRN PRN Reason: Fever >100.4 F Last Admin: 10/08/16 16:21 Dose: 650 mg Amlodipine Besylate (Norvasc) 10 mg PO DAILY [facility] Chlorthalidone (Hygroton) 25 mg PO DAILY [facility] Last Admin: 10/09/16 09:13 Dose: 25 mg Famotidine (Pepcid) 20 mg IVP DAILY [facility] Last Admin: 10/09/16 09:13 Dose: 20 mg Heparin Sodium (Porcine) (Heparin) 5,000 units SC Q12 [facility] PRN Reason: Protocol Last Admin: 10/09/16 21:28 Dose: 5,000 units Hydralazine HCl (Apresoline) 25 mg PO Q6 PRN PRN Reason: Pain, moderate (4-7) Hydromorphone HCl (Dilaudid) 1 mg IVP Q3 PRN PRN Reason: Pain, severe (8-10) Dextrose/Sodium Chloride (Dextrose 5%/0.45% Ns 1000 Ml) 1,000 mls @ 100 mls/hr IV .Q10H [facility] Last Admin: 10/09/16 16:46 Dose: 100 mls/hr Ondansetron HCl (Zofran Inj) 4 mg IVP Q4H PRN PRN Reason: Nausea/Vomiting Last Admin: 10/07/16 05:56 Dose: 4 mg Oxycodone/Acetaminophen (Percocet 5/325 Mg Tab) 2 tab PO Q4H PRN PRN Reason: Pain, moderate (4-7) Stop: 10/10/16 15:54 Last Admin: 10/09/16 21:28 Dose: 2 tab - Labs Labs: 10/09/16 12:30 10/09/16 16:20 PT 11.4 Seconds (9.9-11.8) 10/07/16 11:25 INR 1.06 (0.93-1.08) 10/07/16 11:25 APTT 33.1 Seconds (23.7-30.8) H 10/08/16 06:10 Attending/Attestation - Attestation I have personally seen and examined this patient.: Yes I have fully participated in the care of the patient.: Yes I have reviewed all pertinent clinical information, including history, physical exam and plan: Yes Notes (Text): 10/09/16 21:55 Patient seen and examined at bedside. Denies any new complaints. Admits to non- compliance with her anti-HTN regimen for past 2 years. Norvasc to be increased to 10mg and continue HCTZ regimen. Will discontinue ACEI. BP improved and diastolic BP increased, advised to get outpatient Echo to r/o pulmonary HTN component.Advised lifestyle modifications with salt-restricted diet in view of Essential hypertension. We will sign off at this time, please re-consult as needed. Discussed and Agree with the consult plan .
[2016-10-09] MEDS ORDERED: Oxycodone/Acetaminophen 5/325 mg Tab PO PRN (16:02)
[2016-10-09] MEDS ORDERED: Potassium Chloride 40 mEq/30 ml LIQ UD PO ONE ×2 (16:08→19:03)
[2016-10-09] MEDS ORDERED: Dextrose 5%/0.45% NS 1,000 ML IV SCH (16:15)
[2016-10-10 07:26] LABS: HEMOGLOBIN 10.3 gm/dL (12.0-16.0); MEAN CELL VOLUME 85.5 fL (80.0-105.0); MEAN CORPUSCULAR HEMOGLOBIN 28.8 pg (25.0-35.0); MEAN CORPUSCULAR HGB CONC 33.7 g/dl (31.0-37.0); MEAN PLATELET VOLUME 9.5 fl (7.0-11.0); RBC 3.58 10^6/uL (3.5-6.1); RED CELL DISTRIBUTION WIDTH 13.9 % (11.5-14.5); WHITE BLOOD COUNT 4.9 10^3/ul (4.5-11.0)
[2016-10-10 07:29] LABS: BLOOD UREA NITROGEN 4 mg/dL (7-21); CALCIUM 8.7 mg/dL (8.4-10.5); GFR AFRICAN-AMERICAN > 60; GFR NON-AFRICAN AMERICAN > 60
--- NOTE | 2016-10-10 08:20 | CP.PCM.PN ---
Subjective - Date & Time of Evaluation Date of Evaluation: 10/10/16 Time of Evaluation: 08:14 - Subjective Subjective: Gen Sx: Dr Oneill Pt S&E. [place]. Pt reports pain well controlled. Tolerating liquids. Has been OOB and ambulating. Using incentive spirometer. Has not yet passed flatus. Objective - Vital Signs/Intake and Output Vital Signs (last 24 hours): Temp Pulse Resp BP Pulse Ox 99 F 90 20 130/98 H 98 10/09/16 17:54 10/09/16 16:46 10/09/16 16:00 10/09/16 17:54 10/09/16 16:00 Intake and Output: 10/10/16 10/10/16 06:59 18:59 Intake Total 3180 Balance 3180 - Medications Medications: Current Medications Acetaminophen (Tylenol 325mg Tab) 650 mg PO Q4H PRN PRN Reason: Fever >100.4 F Last Admin: 10/08/16 16:21 Dose: 650 mg Amlodipine Besylate (Norvasc) 10 mg PO DAILY [facility] Chlorthalidone (Hygroton) 25 mg PO DAILY [facility] Last Admin: 10/09/16 09:13 Dose: 25 mg Famotidine (Pepcid) 20 mg IVP DAILY [facility] Last Admin: 10/09/16 09:13 Dose: 20 mg Heparin Sodium (Porcine) (Heparin) 5,000 units SC Q12 [facility] PRN Reason: Protocol Last Admin: 10/09/16 21:28 Dose: 5,000 units Hydralazine HCl (Apresoline) 25 mg PO Q6 PRN PRN Reason: Pain, moderate (4-7) Hydromorphone HCl (Dilaudid) 1 mg IVP Q3 PRN PRN Reason: Pain, severe (8-10) Dextrose/Sodium Chloride (Dextrose 5%/0.45% Ns 1000 Ml) 1,000 mls @ 100 mls/hr IV .Q10H [facility] Last Admin: 10/09/16 16:46 Dose: 100 mls/hr Ondansetron HCl (Zofran Inj) 4 mg IVP Q4H PRN PRN Reason: Nausea/Vomiting Last Admin: 10/07/16 05:56 Dose: 4 mg Oxycodone/Acetaminophen (Percocet 5/325 Mg Tab) 2 tab PO Q4H PRN PRN Reason: Pain, moderate (4-7) Stop: 10/10/16 15:54 Last Admin: 10/09/16 21:28 Dose: 2 tab - Labs Labs: 10/10/16 06:50 10/10/16 06:50 PT 11.4 Seconds (9.9-11.8) 10/07/16 11:25 INR 1.06 (0.93-1.08) 10/07/16 11:25 APTT 33.1 Seconds (23.7-30.8) H 10/08/16 06:10 - Constitutional Appears: Non-toxic, No Acute Distress - Head Exam Head Exam: NORMOCEPHALIC - Eye Exam Eye Exam: Normal appearance - Respiratory Exam Respiratory Exam: absent: Accessory Muscle Use, Respiratory Distress - GI/Abdominal Exam GI & Abdominal Exam: Soft, Tenderness (post-op and appropriate). absent: Distended, Firm, Guarding, Rigid Additional comments: midline incision c/d/i - Extremities Exam Extremities Exam: absent: Calf Tenderness - Neurological Exam Neurological Exam: Alert, Awake, Oriented x3 - Psychiatric Exam Psychiatric exam: Normal Affect, Normal Mood - Skin Skin Exam: Normal Color, Warm Assessment and Plan - Assessment and Plan (Free Text) Assessment: 41F POD#3 s/p ileocecectomy 2/2 strangulated internal hernia Plan: cont to encourage ambulation and incentive spirometer use awaiting flatus before advancing diet will d/c Dilaudid - Percocet for pain HTN mgmt per medical team - well controlled now will d/w Dr Nion Mark, PGY3
[2016-10-11 07:25] LABS: ALB/GLOB RATIO 1.1 (1.1-1.8); ALBUMIN 3.6 g/dL (3.0-4.8); ALT/SGPT 41 U/L (7-56); AST/SGOT 77 U/L (15-39); BLOOD UREA NITROGEN 4 mg/dL (7-21); CALCIUM 9.1 mg/dL (8.4-10.5); GFR AFRICAN-AMERICAN > 60; GFR NON-AFRICAN AMERICAN > 60
[2016-10-11 07:52] LABS: GRAN % 46.2 % (50.0-68.0); HEMOGLOBIN 11.4 gm/dL (12.0-16.0); LYMPH # 1.6 (1.2-3.4); LYMPH % 39.9 % (22.0-35.0); MEAN CORPUSCULAR HEMOGLOBIN 28.4 pg (25.0-35.0); MEAN CORPUSCULAR HGB CONC 33.4 g/dl (31.0-37.0); MEAN PLATELET VOLUME 9.3 fl (7.0-11.0); MONO # 0.5 (0.1-0.6); MONO % 12.9 % (1.0-6.0); PLATELET COUNT 262 10^3/uL (120.0-450.0); RBC 4.01 10^6/uL (3.5-6.1); RED CELL DISTRIBUTION WIDTH 13.5 % (11.5-14.5); WHITE BLOOD COUNT 4.1 10^3/ul (4.5-11.0)
[2016-10-11] MEDS ORDERED: Potassium Chloride 20 mEq ER Tab PO SCH (08:15)
--- NOTE | 2016-10-11 08:22 | CP.PCM.DIS ---
Provider - Provider Date of Admission: 10/06/16 20:45 Attending physician: Queta Oneill MD Primary care physician: NO PRIMARY CARE PROVIDER Time Spent in preparation of Discharge (in minutes): 40 Diagnosis - Discharge Diagnosis (1) Small bowel obstruction Status: Resolved Hospital Course - Lab Results Lab Results: Most Recent Lab Values WBC 4.1 10^3/ul (4.5-11.0) L 10/11/16 06:25 RBC 4.01 10^6/uL (3.5-6.1) 10/11/16 06:25 Hgb 11.4 gm/dL (12.0-16.0) L 10/11/16 06:25 Hct 34.1 % (36.0-48.0) L 10/11/16 06:25 MCV 85.0 fL (80.0-105.0) 10/11/16 06:25 MCH 28.4 pg (25.0-35.0) 10/11/16 06:25 MCHC 33.4 g/dl (31.0-37.0) 10/11/16 06:25 RDW 13.5 % (11.5-14.5) 10/11/16 06:25 Plt Count 262 10^3/uL (120.0-450.0) 10/11/16 06:25 MPV 9.3 fl (7.0-11.0) 10/11/16 06:25 Gran % 46.2 % (50.0-68.0) L 10/11/16 06:25 Lymph % (Auto) 39.9 % (22.0-35.0) H 10/11/16 06:25 Curry % (Auto) 12.9 % (1.0-6.0) H 10/11/16 06:25 Eos % (Auto) 1.0 % (1.5-5.0) L 10/11/16 06:25 Baso % (Auto) 0.0 % (0.0-3.0) 10/11/16 06:25 Gran # 1.90 (1.4-6.5) 10/11/16 06:25 Lymph # 1.6 (1.2-3.4) 10/11/16 06:25 Curry # 0.5 (0.1-0.6) 10/11/16 06:25 Eos # 0.0 (0.0-0.7) 10/11/16 06:25 Baso # 0.00 K/mm3 (0.0-2.0) 10/11/16 06:25 PT 11.4 Seconds (9.9-11.8) 10/07/16 11:25 INR 1.06 (0.93-1.08) 10/07/16 11:25 APTT 33.1 Seconds (23.7-30.8) H 10/08/16 06:10 pO2 42 mm/Hg (30-55) 10/06/16 20:47 VBG pH 7.36 (7.32-7.43) 10/06/16 20:47 VBG pCO2 35.0 (40-60) L 10/06/16 20:47 VBG HCO3 19.8 mmol/l (21-28) L 10/06/16 20:47 VBG Total CO2 20.9 mmol.L (22-28) L 10/06/16 20:47 VBG O2 Sat (Calc) 78.3 % (40-65) H 10/06/16 20:47 VBG Base Excess -5.0 mmol/L (0.0-2.0) L 10/06/16 20:47 VBG Potassium 3.6 mmol/L (3.6-5.2) 10/06/16 20:47 Sodium 133.0 mmol/L (132-148) 10/06/16 20:47 Chloride 107.0 mmol/L (98-107) 10/06/16 20:47 Glucose 112 mg/dl (65-105) H 10/06/16 20:47 Lactate 1.9 mmol/L (0.7-2.1) 10/06/16 20:47 FiO2 21.0 % 10/06/16 20:47 Sodium 137 mmol/L (132-148) 10/11/16 06:25 Potassium 3.2 mmol/L (3.6-5.0) L 10/11/16 06:25 Chloride 101 mmol/L (98-107) 10/11/16 06:25 Carbon Dioxide 27 mmol/L (21-33) 10/11/16 06:25 Anion Gap 12 (10-20) 10/11/16 06:25 BUN 4 mg/dL (7-21) L 10/11/16 06:25 Creatinine 0.7 mg/dL (0.5-1.4) 10/11/16 06:25 Est GFR ( Amer) > 60 10/11/16 06:25 Est GFR (Non-Af Amer) > 60 10/11/16 06:25 Random Glucose 106 mg/dL (70-110) 10/11/16 06:25 Lactic Acid 1.7 mmol/L (0.7-2.1) 10/06/16 20:47 Calcium 9.1 mg/dL (8.4-10.5) 10/11/16 06:25 Total Bilirubin 0.5 mg/dL (0.2-1.3) 10/11/16 06:25 AST 77 U/L (15-39) H 10/11/16 06:25 ALT 41 U/L (7-56) 10/11/16 06:25 Alkaline Phosphatase 46 U/L (38-133) 10/11/16 06:25 Lactate Dehydrogenase 484 U/L (333-699) 10/06/16 19:30 Total Protein 6.9 g/dL (5.8-8.3) 10/11/16 06:25 Albumin 3.6 g/dL (3.0-4.8) 10/11/16 06:25 Globulin 3.4 gm/dL 10/11/16 06:25 Albumin/Globulin Ratio 1.1 (1.1-1.8) 10/11/16 06:25 Amylase 120 U/L (35-125) 10/06/16 18:50 Lipase 79 U/L (23-300) 10/06/16 18:50 Prolactin 40.1 ng/mL (3.0-18.9) H 10/07/16 07:45 Venous Blood Potassium 3.6 mmol/L (3.6-5.2) 10/06/16 20:47 Urine Color Yellow (YELLOW) 10/06/16 17:25 Urine Appearance Sl cloudy (CLEAR) 10/06/16 17:25 Urine pH 8.5 (4.7-8.0) 10/06/16 17:25 Ur Specific [place] 1.025 (1.005-1.035) 10/06/16 17:25 Urine Protein Trace mg/dL (<30 mg/dL) H 10/06/16 17:25 Urine Glucose (UA) Negative mg/dL (NEGATIVE) 10/06/16 17:25 Urine Ketones 40 mg/dL (NEGATIVE) H 10/06/16 17:25 Urine Blood Negative (NEGATIVE) 10/06/16 17:25 Urine Nitrate Negative (NEGATIVE) 10/06/16 17:25 Urine Bilirubin Negative (NEGATIVE) 10/06/16 17:25 Urine Urobilinogen 0.2 E.U./dL (<1 E.U./dL) 10/06/16 17:25 Ur Leukocyte Esterase Negative Anna/uL (NEGATIVE) 10/06/16 17:25 Urine RBC 0 - 2 /hpf (0-2) 10/06/16 17:25 Urine WBC 0 - 2 /hpf (0-6) 10/06/16 17:25 Ur Epithelial Cells 4 - 5 /hpf (0-5) 10/06/16 17:25 Urine Bacteria Trace (NEG) 10/06/16 17:25 Urine HCG, Qual Negative (NEGATIVE) 10/06/16 17:25 Blood Type O POSITIVE 10/07/16 07:45 Blood Type Confirm O POSITIVE 10/07/16 08:45 Antibody Screen Negative 10/07/16 07:45 BBK History Checked No verified bt 10/07/16 07:45 - Hospital Course Hospital Course: Patient presented with a small bowel obstruction. She was taking to surgery on for a ileocecectomy. The operation was uncomplicated. Her pain has improved and she is tolerating a regular diet. She is passing gas and moving her bowels. She denies any N/V/F/CP/SOB. She is ready for discharge home. Discharge Exam - Head Exam Head Exam: NORMOCEPHALIC Discharge Plan - Discharge Medications Prescriptions: oxyCODONE/Acetaminophen [Percocet 5/325 mg Tab] 1 ea PO Q6H PRN #20 tab PRN Reason: Pain, Moderate (4-7) - Follow Up Plan Condition: STABLE Disposition: HOSPICE - HOME Instructions: Bowel Obstruction (DC) Additional Instructions: 1: Please follow up with Dr. Oneill in 10-14 days 2: Take prescriptions as directed 3: No heavy lifting 4: Resume regular diet 5: Brittney will come out during follow up visit 6: Activity as tolerated 7: May shower but no bathing 8: Please return for fever, increasing pain or any emergencies Referrals: PCP,NO [Primary Care Provider] - Queta Oneill MD [Staff Provider] -
[2016-10-11 15:51] VITALS: BP 104/73; PULSE 80; RESP 20; TEMP 98.2; O2SAT 97
--- NOTE | 2016-10-11 16:06 | CP.PCM.PCO ---
Physician Communication Note - Physician Communication Note Physician Communication Note: Cont Chlorthalidone 25mg PO daily and Norvasc 10mg daily, BP good, F/U PMD
--- NOTE | 2016-10-19 12:18 | PCM.OP ---
Operative Report - Operative Report Date of Surgery/Procedure: 10/07/16 Time of Surgery/Procedure: 15:00 Surgeon: Dr. Oneill [employer]: Dr Antony Rich Anesthesia/Sedation: General Anesthesia by Dr. Mansfield Pre-Operative Diagnosis: Closed-loop Small Bowel Obstruction Post-Operative Diagnosis: Internal hernia with strangulated distal small bowel loop Indication for Surgery: Distal small bowel obstruction with closed loop Operative Findings: Internal hernia with stangulated distal ileum Procedure/Operation Description: Laparoscopy open ileocecal resection with anastomosis. With the patient in the supine position under adequate general anesthesia, the abdomen was prepped and draped in the usual sterile manner. Veress needle puncture was performed at the umbilicus with insufflation to 15 cm water pressure CO2, and a 10 mm laparoscopic trocar was inserted via an infraumbilical incision. Under direct vision, the laparoscope was inserted and there was noted to be hemorrhagic fluid within the abdomen with what appeared to be an ecchymotic, possibly necrotic loop of small bowel in the Right Lower Quadrant. The laparoscope was removed and a midline incision was made. Taking down some of the subcutaneous tissues, the peritoneum was entered in the midline. The obstructed loop was palpated, and noted to enter a small internal hernia in the Right Lower Quadrant, which was formed by a strand of omentum. The omental band was divided and the loop was freed. The loop was markedly edematous with a soft texture to the bowel wall, and after observation for a few minutes, it was felt that the segment of small bowel, which measured approximately 11 inches in length was not viable and that resection would be advisable. The distal extent of the damaged area was within 1 inch of the ileocecal valve, and as the appendix also had some deformity and appeared slightly indurated, the decision was made to perform an ileocecal resection with an ileal right colic anastomosis. The right colon was freed along the right lateral wall. An elevated distal point of resection was identified just above the cecum and the right colon was divided with a CHACORTA stapler. The approximal point of resection was identified just proximal to the damaged portion of small bowel, and this also was divided with a CHACORTA stapler. The mesentery was durally clamped, divided, and ligated with 2-0 chromic ties, and the specimen was removed. Side to side anastomosis was then performed between the ileum and the right colon using the CHACOTRA stapler and the defect was closed with a TA-55 stapler. A 1 inch anastomosis was palpated and fluid was noted to pass freely from the ileum into the colon. The mesentery was approximated with 3 -0 vicryl sutures. When this had been completed, the abdomen was irrigated and suctioned, and closure was performed with a running suture of #1 double- stranded PDS. Skin was closed with arely, and dry sterile dressing was applied. The patient tolerated the procedure well, and transferred to recovery room in stable condition. Estimated blood loss for the procedure was 250 cc, which included some of the hemorrhagic fluid present in the abdomen at the beginning of the procedure. Estimated Blood Loss: 250cc Complications: none Specimen: Distal ileum with cecum and appendix Discharge & Condition: To recovery room in stable condition
== END 2016-10-11 19:17 | disposition home or self-care (01) | DRG 331 ==
LOC: ED 16:48 → ERH 20:45 → 5RSO 21:32
PROVIDERS: ADMIT Specialist; ATTEND Specialist
PROC: 0WJP4ZZ Inspection of Gastrointestinal Tract, Percutaneous Endoscopic Approach (ICD-10-PCS; 2016-10-07)
PROC: 0DTH0ZZ Resection of Cecum, Open Approach (ICD-10-PCS; principal; 2016-10-07 11:00)
DX: K46.0 Unspecified abdominal hernia with obstruction, without gangrene (principal); I97.3 Postprocedural hypertension; Y83.6 Removal of other organ (partial) (total) as the cause of abnormal reaction of the patient, or of later complication, without mention of misadventure at the time of the procedure; Z53.31 Laparoscopic surgical procedure converted to open procedure